=== PATIENT | male | born 1970 | race Hispanic/Latino ===

== ENCOUNTER 2023-02-26 18:03 | Emergency (ER) | payer SELFPAY ==
[2023-02-26 18:43] LABS: #Eosinphils 0.2 thou/uL (0.0-0.7); #Monocytes 0.5 thou/uL (0.11-0.59); #Neutrophils 5.7 thou/uL (1.40-6.50); %Basophils 0.5 % (0.0-1.0); %Eosinophils 2.7 % (0.0-10.0); %Monocytes 5.6 % (0.0-10.0); %Neutrophils 67.8 % (42.0-75.0); Hematocrit 49.4 % (42.0-52.0); Mean Corpuscular HGB CONC 36.4 g/dL (32.0-36.0); Mean Corpuscular Hemoglobin 33.7 pg (27.0-31.0); Mean Corpuscular Volume 92.5 fl (78.0-98.0); Mean Platelet Volume 11.1 fL (7.4-10.4); Platelet Count 215 10x3/uL (130-400); RBC Distribution Width 11.7 % (11.5-14.5); Red Blood Cell (RBC) Count 5.34 mill/uL (4.70-6.10); White Blood Cell (WBC) Count 8.4 10x3/uL (4.8-10.8)
[2023-02-26 19:17] LABS: Troponin I 0.011 ng/mL (< 0.028)
[2023-02-26 19:27] LABS: ALT (SGPT) 208 U/L (8-55); AST (SGOT) 153 U/L (5-34); Albumin 5.1 g/dL (3.5-5.0); Alkaline Phosphatase 177 U/L (40-110); Anion Gap 18 mmol/L (10-20); BUN (Urea Nitrogen) 17 mg/dL (8.9-20.6); Bilirubin, Total 1.9 mg/dL (0.2-1.2); Calc. Creatinine Clearance 0 mL/min (70-130); Calcium 10.1 mg/dL (7.8-10.44); Carbon Dioxide 25 mmol/L (22-29); Chloride 99 mmol/L (98-107); Estimated GFR 63; Globulin 3.2 g/dL (2.4-3.5); Potassium 3.8 mmol/L (3.5-5.1); Protein, Total 8.3 g/dL (6.0-8.3); Sodium 138 mmol/L (136-145)
[2023-02-26 19:35] LABS: Bilirubin Negative (Negative); Blood, Urine Negative (Negative); CAUTI Indications for Culture Dysuria,urgency,freq; Clarity Clear (Clear); Glucose, Urine (Dipstick) Greater than 1000 mg/dL (Negative); Ketone, Urine 40 mg/dL (Negative); Leukocyte Negative Leu/uL (Negative); Nitrite Negative (Negative); Protein, Urine (Dipstick) Negative (Neg-Trace); RBC/HPF 0-3 HPF (0-3); Specific Gravity, Urine 1.038 (1.002-1.036); Squamous Epithelial 0-3 HPF (0-3); Urobilinogen Normal mg/dL (Less than 2); WBC/HPF 0-3 HPF (0-3)
[2023-02-26 19:41] LABS: Glucose 478 mg/dL (70-105)
[2023-02-26 19:45] LABS: Bacteria/HPF None Seen HPF (None Seen); Urine Culture Reflex No No
== END 2023-02-26 19:57 | disposition home or self-care (01) ==
LOC: ERS 18:03
DX: E11.9 Type 2 diabetes mellitus without complications (principal); I10 Essential (primary) hypertension; M10.9 Gout, unspecified
CPT/HCPCS: 36416; 80053; 81001; 83690; 84484; 85025; 94760

== ENCOUNTER 2024-02-24 07:43 | Outpatient (CLI) | payer OTHER | END 2024-02-24 07:44 | disposition home or self-care (01) | LOC: ULT 07:43 | PROVIDERS: ATTEND Nurse Practitioner Family | DX: R79.89 Other specified abnormal findings of blood chemistry (principal); K82.4 Cholesterolosis of gallbladder; N28.89 Other specified disorders of kidney and ureter | CPT/HCPCS: 76705 ==